=== PATIENT | male | born 1975 | race Caucasian/White ===

== ENCOUNTER 2016-07-21 15:02 | Emergency (ER) | payer BC ==
[~2016-07-21] VITALS: Ht 182.9 cm; Wt 110.9 kg
[~2016-07-21 15:02] MED LIST: RANI-45 PO
[2016-07-21 15:04] VITALS: Ht 182.9 cm; Wt 110.9 kg
--- OUTSIDE RECORDS SUMMARY | 2016-07-21 15:05 | XMS REPORT | Continuity of Care Document ---
Author Author [facility] Organization [facility] Address Unknown Phone Unavailable Allergies Active Description Code Type Severity Reaction Onset Reported/Identified Relationship to Patient Clinical Status Yes No Known Medication Allergies NKMA N/A N/A 06/19/2015 Medications Problems Procedures Results Encounters ACCT No. Visit Date/Time Discharge Status Pt. Type Provider Facility Loc./Unit Complaint [id number] 05/12/2013 11:18:00 05/12/2013 23 :59:59 [facility] Outpatient [id number] 04/21/2013 13:15:00 04/21/2013 23 :59:59 [facility] Outpatient
--- OUTSIDE RECORDS SUMMARY | 2016-07-21 15:05 | XMS REPORT | Continuity of Care Document ---
Author Author Heena HOLLOWAY, Ricardo LILLY Organization Ambulatory Address [address] [place] [address] [place] [address] Phone Care Team Providers Care Bi Application Developer Name Role Phone Ricardo Naik PP Unavailable Payers Payer name Insurance type Covered constitution party ID Authorization(s) Unknown Problems Condition Effective Dates (start - stop) Clinical Status Chest pain, unspecified - *Resolved GERD - *Controlled Solitary pulmonary nodule - *Controlled GERD - *Controlled Upper Respiratory Infection, Acute - *Acute Chest pain, unspecified - *Acute GERD - *Chronic Blood pressure elevation w/o HTN - *Chronic Solitary pulmonary nodule - *Chronic GERD - *Chronic Family History Family Member Diagnosis Age At Onset Status Mother (Unknown) Alive and well (Unknown) Father (Unknown) Alive and well (Unknown) Social History Social History Element Description Quantity Unknown Allergies, Adverse Reactions, Alerts Substance Reaction Severity Status Unknown Medications Medication Instructions Dosage Effective Dates (start - stop) Status Prilosec 40 mg capsule,delayed release take 1 capsule (40MG) by oral route every day before a meal 40 MG - Active Zithromax 250 mg tablet take 2 tablet (500MG) by oral route every day for 1 day then 1 tablet (250 mg) by oral route once daily for 4 days 500 MG 2013 - No Longer Active Reglan 10 mg tablet 1 po qd prn - Active Prilosec 40 mg capsule,delayed release take 1 capsule (40MG) by oral route every day before a meal 40 MG - Active Immunizations Vaccine Date Status Comments flu (split) (3 yrs or older) completed - Completed reason: public agency Results Test Name Date and Time Measure Units Reference Range Abnormal Flag Comments Unknown Vital Signs Date / Time: Height Weight Pulse Rate Blood Pressure Temperature /11:18:00 73.00 in 243.00 lbs 140/80 mm[Hg] 97.5 F Procedures Procedure Date Unknown Encounters Encounter Location Date Patient Visit [facility] Patient Visit [facility] Patient Visit [facility] Advance Directives Directive Effective Date Unknown
--- OUTSIDE RECORDS SUMMARY | 2016-07-21 15:05 | XMS REPORT | Continuity of Care Document ---
Author Author Heena HOLLOWAY, Ricardo LILLY Organization [facility] Address [address] [place] [address] [place] [address] Phone Care Team Providers Care Senior Clerk Name Role Phone Ricardo Naik PP Unavailable Payers Payer name Insurance type Covered alliance party ID Authorization(s) Unknown Problems Condition Effective Dates (start - stop) Clinical Status Chest pain, unspecified - *Acute GERD - *Chronic Blood pressure elevation w/o HTN - *Chronic Solitary pulmonary nodule - *Chronic GERD - *Chronic Chest pain, unspecified - *Resolved GERD - *Controlled Solitary pulmonary nodule - *Controlled GERD - *Controlled Upper Respiratory Infection, Acute - *Acute Family History Family Member Diagnosis Age At Onset Status Mother (Unknown) Alive and well (Unknown) Father (Unknown) Alive and well (Unknown) Social History Social History Element Description Quantity Unknown Allergies, Adverse Reactions, Alerts Substance Reaction Severity Status Unknown Medications Medication Instructions Dosage Effective Dates (start - stop) Status Reglan 10 mg tablet 1 po qd prn - Active Pepcid 20 mg tablet take 1 tablet (20MG) by oral route 2 times every day 20 MG - No Longer Active Prilosec 40 mg capsule,delayed release take 1 capsule (40MG) by oral route every day before a meal 40 MG - Active Prilosec 40 mg capsule,delayed release [...] Height Weight Pulse Rate Blood Pressure Temperature /13:16:00 73.00 in 248.00 lbs 140/90 mm[Hg] 97.8 F Procedures Procedure Date Unknown Encounters Encounter Location Date Patient Visit [facility] Patient Visit [facility] Patient Visit [facility] Advance Directives Directive Effective Date Unknown
--- OUTSIDE RECORDS SUMMARY | 2016-07-21 15:05 | XMS REPORT | Referral Summary ---
Author Author [facility] Organization [facility] Address Unknown Phone Unavailable Care Team Providers Care Commercial Review Appraiser Name Role Phone Deion Naik Primary Care Physician [phone] Encounter [facility] Date(s): 11/05/15 - 11/05/15 [facility], [address] [place], [place] [id number] Discharge Disposition: 01-Home or Self Care Attending Physician: Ricardo Naik MD Admitting Physician: Ricardo Naik MD Vital Signs Most recent to 1 oldest [Reference Range]: Blood Pressure 130/100 mmHg [90-140/60-90 mmHg] (11/05/15 8:59 AM) Problem List Condition Effective Dates Status Health Status Informant GERD Resolved (gastroesophageal reflux disease)(Confirmed) Gout(Confirmed) Active Allergies, Adverse Reactions, Alerts No Known Medication Allergies Medications allopurinol 100 mg oral tablet 100 mg 1 tabs, Oral, Daily, # 90 tabs, 1 Refill(s), Pharmacy: [id number], 1 tabs Oral Daily Start Date: 11/05/15 Status: Ordered cyclobenzaprine 10 mg oral tablet 10 mg 1 tabs, Oral, TID, as needed for spasm, # 40 tabs, 0 Refill(s), Pharmacy: [id number], 1 tabs Oral TID,PRN:as needed for spasm Start Date: 11/05/15 Status: Ordered omeprazole 40 mg oral delayed release capsule 40 mg 1 caps, Oral, Daily, # 90 caps, 1 Refill(s), Pharmacy: [id number], 1 caps Oral Daily Start Date: 11/05/15 Status: Ordered Results No data available for this section Immunizations Vaccine Date Refusal Reason influenza virus vaccine, live 04/29/12 Procedures No data available for this section Social History Social History Type Response Smoking Status Never smoker Assessment and Plan Extracted from: Title: [facility] Patient Education Author: Ricardo Naik MD Date: Family Medicine Esophagitis Esophagitis is inflammation of the esophagus. It can involve swelling, soreness , and pain in the esophagus. This condition can make it difficult and painful to swallow. CAUSES Most causes of esophagitis are not serious. Many different factors can cause esophagitis, including: Gastroesophageal reflux disease (GERD). This is when acid from your stomach flows up into the esophagus. Recurrent vomiting. An allergic-type reaction. Certain medicines, especially those that come in large pills. Ingestion of harmful chemicals, such as household cleaning products. Heavy alcohol use. An infection of the esophagus. Radiation treatment for cancer. Certain diseases such as sarcoidosis, Crohn's disease, and scleroderma. These diseases may cause recurrent esophagitis. SYMPTOMS Trouble swallowing. Painful swallowing. Chest pain. Difficulty breathing. Nausea. Vomiting. Abdominal pain. DIAGNOSIS Your caregiver will take your history and do a physical exam. Depending upon what your caregiver finds, certain tests may also be done, including: Barium X-ray. You will drink a solution that coats the esophagus, and X- rays will be taken. Endoscopy. A lighted tube is put down the esophagus so your caregiver can examine the area. Allergy tests. These can sometimes be arranged through follow-up visits. TREATMENT Treatment will depend on the cause of your esophagitis. In some cases, steroids or other medicines may be given to help relieve your symptoms or to treat the underlying cause of your condition. Medicines that may be recommended include: Viscous lidocaine, to soothe the esophagus. Antacids. Acid reducers. Proton pump inhibitors. Antiviral medicines for certain viral infections of the esophagus. Antifungal medicines for certain fungal infections of the esophagus. Antibiotic medicines, depending on the cause of the esophagitis. HOME CARE INSTRUCTIONS Avoid foods and drinks that seem to make your symptoms worse. Eat small, frequent meals instead of large meals. Avoid eating for the 3 hours prior to your bedtime. If you have trouble taking pills, use a pill splitter to decrease the size and likelihood of the pill getting stuck or injuring the esophagus on the way down. Drinking water after taking a pill also helps. Stop smoking if you smoke. Maintain a healthy weight. Wear loose-fitting clothing. Do not wear anything tight around your waist that causes pressure on your stomach. Raise the head of your bed 6 to 8 inches with wood blocks to help you sleep. Extra pillows will not help. Only take [id number] or prescription medicines as directed by your caregiver. SEEK IMMEDIATE MEDICAL CARE IF: You have severe chest pain that radiates into your arm, neck, or jaw. You feel sweaty, dizzy, or lightheaded. You have shortness of breath. You vomit blood. You have difficulty or pain with swallowing. You have bloody or black, tarry stools. You have a fever. You have a burning sensation in the chest more than 3 times a week for more than 2 weeks. You cannot swallow, drink, or eat. You drool because you cannot swallow your saliva. MAKE SURE YOU: Understand these instructions. Will watch your condition. Will get help right away if you are not doing well or get worse. This information is not intended to replace advice given to you by your health care provider. Make sure you discuss any questions you have with your health care provider. Document Released: 05/14/2005 Document Revised: 04/27/2015 Document Reviewed: [facility] Patient Information 2016 [employer]. No follow up information was provided. Extracted from: Title: Office Visit Note Author: Ricardo Naik MD Date: 11/05/15 Assessment/Plan Acute neck pain We discussed several options for treatment for this condition. The patient declined any changes or other treatments at this time. The patient was offered and/or directed to a specialist for this issue. The patient refused or at least deferred any referral at this time. Xray and consider MRI when interested.Flexeril 10mgpo tid prn, may cause sedation. A work/school note was offered and deferred by the patient. Elevated BP The patient had an elevated blood pressure reading and is to monitor their bp and call with a report if consistently > 140/90. GERD (gastroesophageal reflux disease) This issue was reviewed, appears stable , and current therapy continued except as mentioned. Appropriate lab was reviewed from the most recent appropriate entry and lab was ordered if needed in the cpoe/nursing orders, and follow up recommended generally in 90 days and no later then six months. Refills given. Gout This issue was reviewed, appears stable, and current therapy continued except as mentioned. Appropriate lab was reviewed from the most recent appropriate entry and lab was ordered if needed in the cpoe/nursing orders, and follow up recommended generally in 90 days and no later then six months. Lab pending. Ordered: Basic Metabolic Panel Urinalysis with Culture if Indicated Orders: allopurinol, 100 mg 1 tabs, Oral, Daily, # 90 tabs, 1 Refill(s), Pharmacy: [id number], 1 tabs Oral Daily cyclobenzaprine, 10 mg 1 tabs, Oral, TID, as needed for spasm, # 40 tabs, 0 Refill(s), Pharmacy: [id number], 1 tabs Oral TID,PRN:as needed for spasm omeprazole, 40 mg 1 caps, Oral, Daily, # 90 caps, 1 Refill(s), Pharmacy: [id number], 1 caps Oral Daily
--- OUTSIDE RECORDS SUMMARY | 2016-07-21 15:05 | XMS REPORT | Referral Summary ---
Author Author [facility], Family Medicine Organization [facility] Address Unknown Phone Unavailable Care Team Providers Care Lockstitch Sleeve Maker Name Role Phone Yamiletdestinee Deion Primary Care Physician [phone] Encounter Date(s): 06/19/15 - 06/19/15 [facility], [address] [place], [place] [address] Discharge Diagnosis: Pain of right great toe Discharge Diagnosis: Acute gout of right foot Discharge Disposition: 01-Home or Self Care Attending Physician: Simi Greenberg PA-C Admitting Physician: Simi Greenberg PA-C Vital Signs Most recent to 1 oldest [Reference Range]: Temperature Tympanic 36.5 degC [36.6-38.1 degC] *LOW* (06/19/15 3:15 PM) Peripheral Pulse 74 bpm Rate [60-100 bpm] (06/19/15 3:15 PM) Respiratory Rate 18 br/min [14-20 br/min] (06/19/15 3:15 PM) Blood Pressure 130/90 mmHg [90-140/60-90 mmHg] (06/19/15 3:15 PM) Problem List Condition Effective Dates Status Health Status Informant GERD Resolved (gastroesophageal reflux disease)(Confirmed) Allergies, Adverse Reactions, Alerts No Known Medication Allergies Medications allopurinol 100 mg oral tablet 100 mg 1 tabs, Oral, Daily, # 30 tabs, 0 Refill(s), Pharmacy: [id number], 1 tabs Oral Daily Start Date: 06/19/15 Status: Ordered colchicine 0.6 mg oral tablet See Instructions, Take 2 tabs PO x 1, then 1 tab PO 1 hr later x 1, # 3 Each, 0 Refill(s), Pharmacy: [id number], Take 2 tabs PO x 1, then 1 tab PO 1 hr later x 1 Start Date: 06/19/15 Stop Date: 06/20/15 Status: Ordered omeprazole 40 mg oral delayed release capsule 1 caps, Oral, Daily, # 30 caps, 0 Refill(s) Start Date: 09/28/13 Status: Ordered Results Chemistry Most recent to 1 oldest [Reference Range]: Uric Acid [3.5-7.2 7.7 mg/dL mg/dL] *HI* (06/19/15 3:38 PM) Immunizations Vaccine Date Refusal Reason influenza virus vaccine, live 04/29/12 Procedures No data available for this section Social History Social History Type Response Smoking Status Never smoker Assessment and Plan Extracted from: Title: Ambulatory Patient Education Author: Simi Greenberg PA-C Date : 06/19/15 Family Medicine Gout Gout is an inflammatory arthritis caused by a buildup of uric acid crystals in the joints. Uric acid is a chemical that is normally present in the blood. When the level of uric acid in the blood is too high it can form crystals that deposit in your joints and tissues. This causes joint redness, soreness, and swelling (inflammation). Repeat attacks are common. Over time, uric acid crystals can form into masses (tophi) near a joint, destroying bone and causing disfigurement. Gout is treatable and often preventable. CAUSES The disease begins with elevated levels of uric acid in the blood. Uric acid is produced by your body when it breaks down a naturally found substance called purines. Certain foods you eat, such as meats and fish, contain high amounts of purines. Causes of an elevated uric acid level include: Being passed down from parent to child (heredity). Diseases that cause increased uric acid production (such as obesity, psoriasis, and certain cancers). Excessive alcohol use. Diet, especially diets rich in meat and seafood. Medicines, including certain cancer-fighting medicines (chemotherapy), water pills (diuretics), and aspirin. Chronic kidney disease. The kidneys are no longer able to remove uric acid well. Problems with metabolism. Conditions strongly associated with gout include: Obesity. High blood pressure. High cholesterol. Diabetes. Not everyone with elevated uric acid levels gets gout. It is not understood why some people get gout and others do not. Surgery, joint injury, and eating too much of certain foods are some of the factors that can lead to gout attacks. SYMPTOMS An attack of gout comes on quickly. It causes intense pain with redness, swelling, and warmth in a joint. Fever can occur. Often, only one joint is involved. Certain joints are more commonly involved: Base of the big toe. Knee. Ankle. Wrist. Finger. Without treatment, an attack usually goes away in a few days to weeks. Between attacks, you usually will not have symptoms, which is different from many other forms of arthritis. DIAGNOSIS Your caregiver will suspect gout based on your symptoms and exam. In some cases , tests may be recommended. The tests may include: Blood tests. Urine tests. X-rays. Joint fluid exam. This exam requires a needle to remove fluid from the joint (arthrocentesis). Using a microscope, gout is confirmed when uric acid crystals are seen in the joint fluid. TREATMENT There are two phases to gout treatment: treating the sudden onset (acute) attack and preventing attacks (prophylaxis). Treatment of an Acute Attack. Medicines are used. These include anti-inflammatory medicines or steroid medicines. An injection of steroid medicine into the affected joint is sometimes necessary. The painful joint is rested. Movement can worsen the arthritis. You may use warm or cold treatments on painful joints, depending which works best for you. Treatment to Prevent Attacks. If you suffer from frequent gout attacks, your caregiver may advise preventive medicine. These medicines are started after the acute attack subsides. These medicines either help your kidneys eliminate uric acid from your body or decrease your uric acid production. You may need to stay on these medicines for a very long time. The early phase of treatment with preventive medicine can be associated with an increase in acute gout attacks. For this reason, during the first few months of treatment, your caregiver may also advise you to take medicines usually used for acute gout treatment. Be sure you understand your caregiver's directions. Your caregiver may make several adjustments to your medicine dose before these medicines are effective. Discuss dietary treatment with your caregiver or dietitian. Alcohol and drinks high in sugar and fructose and foods such as meat, poultry, and seafood can increase uric acid levels. Your caregiver or dietitian can advise you on drinks and foods that should be limited. HOME CARE INSTRUCTIONS Do not take aspirin to relieve pain. This raises uric acid levels. Only take [id number]-oor-ibilkcx or prescription medicines for pain, discomfort , or fever as directed by your caregiver. Rest the joint as much as possible. When in bed, keep sheets and blankets off painful areas. Keep the affected joint raised (elevated). Apply warm or cold treatments to painful joints. Use of warm or cold treatments depends on which works best for you. Use crutches if the painful joint is in your leg. Drink enough fluids to keep your urine clear or pale yellow. This helps your body get rid of uric acid. Limit alcohol, sugary drinks, and fructose drinks. Follow your dietary instructions. Pay careful attention to the amount of protein you eat. Your daily diet should emphasize fruits, vegetables, whole grains, and fat-free or low-fat milk products. Discuss the use of coffee, vitamin C, and cherries with your caregiver or dietitian. These may be helpful in lowering uric acid levels. Maintain a healthy body weight. SEEK MEDICAL CARE IF: You develop diarrhea, vomiting, or any side effects from medicines. You do not feel better in 24 hours, or you are getting worse. SEEK IMMEDIATE MEDICAL CARE IF: Your joint becomes suddenly more tender, and you have chills or a fever. MAKE SURE YOU: Understand these instructions. Will watch your condition. Will get help right away if you are not doing well or get worse. This information is not intended to replace advice given to you by your health care provider. Make sure you discuss any questions you have with your health care provider. Document Released: 04/03/2001 Document Revised: 08/21/2014 Document Reviewed: [facility] Patient Information 2015 [employer]. Low-Purine Diet Purines are compounds that affect the level of uric acid in your body. A low- purine diet is a diet that is low in purines. Eating a low-purine diet can prevent the level of uric acid in your body from getting too high and causing gout or kidney stones or both. WHAT DO I NEED TO KNOW ABOUT THIS DIET? Choose low-purine foods. Examples of low-purine foods are listed in the next section. Drink plenty of fluids, especially water. Fluids can help remove uric acid from your body. Try to drink 816 cups (1.93.8 L) a day. Limit foods high in fat, especially saturated fat, as fat makes it harder for the body to get rid of uric acid. Foods high in saturated fat include pizza, cheese, ice cream, whole milk, fried foods, and gravies. Choose foods that are lower in fat and lean sources of protein. Use olive oil when cooking as it contains healthy fats that are not high in saturated fat. Limit alcohol. Alcohol interferes with the elimination of uric acid from your body. If you are having a gout attack, avoid all alcohol. Keep in mind that different people's bodies react differently to different foods. You will probably learn over time which foods do or do not affect you. If you discover that a food tends to cause your gout to flare up, avoid eating that food. You can more freely enjoy foods that do not cause problems. If you have any questions about a food item, talk to your dietitian or health care provider. WHICH FOODS ARE LOW, MODERATE, AND HIGH IN PURINES? The following is a list of foods that are low, moderate, and high in purines. You can eat any amount of the foods that are low in purines. You may be able to have small amounts of foods that are moderate in purines. Ask your health care provider how much of a food moderate in purines you can have. Avoid foods high in purines. Grains Foods low in purines: Enriched white bread, pasta, rice, cake, cornbread , popcorn. Foods moderate in purines: Whole-grain breads and cereals, wheat germ, bran, oatmeal. Uncooked oatmeal. Dry wheat bran or wheat germ. Foods high in purines: Pancakes, Japanese toast, biscuits, muffins. Vegetables Foods low in purines: All vegetables, except those that are moderate in purines. Foods moderate in purines: Asparagus, cauliflower, spinach, mushrooms, green peas. Fruits All fruits are low in purines. Meats and other Protein Foods Foods low in purines: Eggs, nuts, peanut butter. Foods moderate in purines: 8090% lean beef, puga, veal, pork, poultry , fish, eggs, peanut butter, nuts. Crab, lobster, oysters, and shrimp. Cooked dried beans, peas, and lentils. Foods high in purines: Anchovies, sardines, gilmore, mussels, tuna, codfish, scallops, trout, and juan miguel. Wright. Organ meats (such as liver or kidney). Tripe. Game meat. Goose. Sweetbreads. Dairy All dairy foods are low in purines. Low-fat and fat-free dairy products are best because they are low in saturated fat. Beverages Drinks low in purines: Water, carbonated beverages, tea, coffee, cocoa. Drinks moderate in purines: Soft drinks and other drinks sweetened with high-fructose corn syrup. Juices. To find whether a food or drink is sweetened with high-fructose corn syrup, look at the ingredients list. Drinks high in purines: Alcoholic beverages (such as beer). Condiments Foods low in purines: Salt, herbs, olives, pickles, relishes, vinegar. Foods moderate in purines: Butter, margarine, oils, mayonnaise. Fats and Oils Foods low in purines: All types, except gravies and sauces made with meat. Foods high in purines: Gravies and sauces made with meat. Other Foods Foods low in purines: Sugars, sweets, gelatin. Cake. Soups made without meat. Foods moderate in purines: Meat-based or fish-based soups, broths, or bouillons. Foods and drinks sweetened with high-fructose corn syrup. Foods high in purines: High-fat desserts (such as ice cream, cookies, cakes, pies, doughnuts, and chocolate). Contact your dietitian for more information on foods that are not listed here. This information is not intended to replace advice given to you by your health care provider. Make sure you discuss any questions you have with your health care provider. Document Released: 08/01/2011 Document Revised: 04/11/2014 Document Reviewed: [employer] Patient Information 2015 [facility]. No follow up information was provided. Extracted from: Title: Office Visit Note- Gout Author: Simi Greenberg PA-C Date: 06/18 Assessment/Plan Acute gout of right foot I d/w the pt that this appears to be very classic gout. He is a little skeptical. He would like an x-ray today to make sure it doesn't have to do with his previous injury. I recommended that we check his uric acid level today. I would like to start him on Allopurinol 100mg daily and also Colcrys to help with the pain. I spent about 15 minutes discussing with pt about gout. I advised that he cut back or quit drinking beer, as well as cut back on red meats. Increase dairy and push fluids. We discussed the need to continue on Allopurinol to prevent gout attacks. He can continue to ice and elevate the foot for now. Will check uric acid level today as well. If the level is normal, the pt could DC Allopurinol if he would like. Ordered: Office Visit Level 4 Est 31177 Pain of right great toe, Pain of right great toe See plan above. Ordered: Office Visit Level 4 Est 83742 Uric Acid XR Foot Complete Right Orders: allopurinol, 100 mg 1 tabs, Oral, Daily, # 30 tabs, 0 Refill(s), Pharmacy: [facility], 1 tabs Oral Daily colchicine, See Instructions, Take 2 tabs PO x 1, then 1 tab PO 1 hr later x 1 , # 3 Each, 0 Refill(s), Pharmacy: [facility], Take 2 tabs PO x 1, then 1 tab PO 1 hr later x 1
--- OUTSIDE RECORDS SUMMARY | 2016-07-21 15:05 | XMS REPORT | Referral Summary ---
Author Author [facility], [facility] Organization [facility] Address Unknown Phone Unavailable Care Team Providers Care Sap Basis Consultant Name Role Phone Deion Naik Primary Care Physician [phone] Encounter Date(s): 05/19/16 - 05/19/16 [facility] [address] [place] [id number] Discharge Diagnosis: Left shoulder pain Discharge Diagnosis: Gout Discharge Diagnosis: GERD (gastroesophageal reflux disease) Discharge Disposition: -Home or Self Care Attending Physician: Ricardo Naik MD Admitting Physician: Ricardo Naik MD Vital Signs Most recent to 1 oldest [Reference Range]: Blood Pressure 120/80 mmHg [90-140/60-90 mmHg] (05/19/16 10:41 AM) Problem List Condition Effective Dates Status Health Status Informant GERD Resolved (gastroesophageal reflux disease)(Confirmed) Gout(Confirmed) Active Obesity(Confirmed) Active patient Allergies, Adverse Reactions, Alerts No Known Medication Allergies Medications allopurinol 100 mg oral tablet 100 mg 1 tabs, Oral, Daily, # 90 tabs, 1 Refill(s), Pharmacy: [facility], 1 tabs Oral Daily Start Date: 05/19/16 Status: Ordered cyclobenzaprine 10 mg oral tablet 10 mg 1 tabs, Oral, TID, as needed for spasm, # 90 tabs, 0 Refill(s), Pharmacy: [id number], 1 tabs Oral TID,PRN:as needed for spasm Start Date: 05/19/16 Status: Ordered omeprazole 40 mg oral delayed release capsule 40 mg 1 caps, Oral, Daily, # 90 caps, 1 Refill(s), Pharmacy: [id number], 1 caps Oral Daily Start Date: 05/19/16 Status: Ordered Results No data available for this section Immunizations Given and Recorded Vaccine Date Status Refusal Reason influenza virus vaccine, live 04/29/12 Given Procedures No data available for this section Social History Social History Type Response Smoking Status Never smoker Assessment and Plan Extracted from: Title: Ambulatory Patient Education Author: Ricardo Naik MD Date: Nutrition Esophagitis Esophagitis is inflammation of the esophagus. [...] Extra pillows will not help. Only take firs-npc-scrunoa or prescription medicines as directed by your [...] Released: 05/14/2005 Document Revised: 04/27/2015 Document Reviewed: [employer] Patient Education 2016 [employer] No follow up information was provided. Extracted from: Title: Office Visit Note Author: Ricardo Naik MD Date: 05/19/16 Assessment/Plan GERD (gastroesophageal reflux disease) This issue was reviewed, appears stable, and current therapy continued except as mentioned. Appropriate lab was reviewed from the most recent appropriate entry and lab was ordered if needed in the cpoe/nursing orders, and follow up recommended generally in 90 days and no later then six months. Refill meds. Gout The patient's issue is nearly or completely resolved. There is no further issues or testing desired by them at this time. This issue was reviewed, appears stable, and current therapy continued except as mentioned. Appropriate lab was reviewed from the most recent appropriate entry and lab was ordered if needed in the cpoe/nursing orders, and follow up recommended generally in 90 days and no later then six months. Refill meds. IMPRESSION: 1. There is mild soft tissue edema along the medial aspect of the first metatarsophalangeal joint. The joint itself is fairly well-maintained and there is no sign of bony destruction. If further imaging of the first metatarsophalangeal joint is desired, then MRI would be recommended. [1] Left shoulder pain This issue was reviewed, appears stable, and current therapy continued except as mentioned. Appropriate lab was reviewed from the most recent appropriate entry and lab was ordered if needed in the cpoe/nursing orders, and follow up recommended generally in 90 days and no later then six months. Refillflexeril athis request. A work/school note was offered and deferred by the patient. Impression: Negative left shoulder x-rays [2] IMPRESSION: No acute disease is seen in the chest , with stable findings. [3]
[2016-07-21] MEDS ORDERED: ASPIRIN 81 MG CHEWABLE TABLET PO ONE (15:15)
[2016-07-21] MEDS ORDERED: NITROGLYCERIN 0.4 MG SUBLINGUAL TABLET SL PRN (15:15)
--- NOTE | 2016-07-21 15:20 | ERPDOC ---
Departure Disposition Decision Date: Jul 21, 2016 Disposition Decision Time: 16:01 Disposition: 01 DISCHARGED HOME, SELF-CARE Impression Impression Impression: Primary Impression: Atypical chest pain Severity: Moderate Condition: Stable Seen By: Mid-level only Referrals: ML BANDA MD (Family) Patient Instructions: Gastroesophageal Reflux Disease (ED) Problems/Meds/Labs Reviewed?: Yes Medications reviewed and manag: Yes Additional Instructions: I do want you to start the Nexium as prescribed. This should help in the next few days. Follow up with Dr Banda for further evaluation of the pain if it persists. Follow up care ordered?: Yes Mental Status: Alert Scripts Esomeprazole Mag Trihydrate (Nexium) 20 Mg Capsule 1 TAB PO DAILY, #30 TAB 0 Refills Prov: EDNA PHILLIPS [employer]ER AND SEWER 07/21/16 HPI - Chest Pain General Chief Complaint: Chest Pain Stated Complaint: CP Time Seen by Provider: 15:03 Source: patient Exam Limitations: no limitations HPI - Chest Pain Initial Comments He had onset of chest pain today after eating lunch. He had a frozen microwavable meal for lunch. Pain does come and go and he did not have any SOA, nausea, or lightheadedness. He has had this happen in the past and was diagnosed with GERD. He did go to his PCP office today and was sent to ER for evaluation. Has not really had much of a cough or a fever. Has had some chills. Denies any pain at all currently but did have some in the lobby when he checked in. Has not take anything for pain today. Occurred At: home Onset/Timing: Rapid Duration: 1-3 hrs (around 1230 today after lunch) Activities at Onset/Context: none Location: substernal Quality: sharp Associated Symptoms: DENIES: abdominal pain, back pain, diaphoresis, dizziness , edema, fast HR, fatigue, fever/chills, headache, heartburn, irregular HR, nausea/vomiting, rash, shortness of breath, slow HR, swelling/lump in chest, syncope, weakness Chest Pain Radiation: no radiation Nitro Today/Relief: no nitro taken today Aspirin Treatment Today: unknown Hx of Similar Symptoms: Yes Allergies: Coded Allergies: No Known Allergies (Unverified , 04/16/13) Past History Past Medical History GI: GERD Surgical History Denies Surgeries Family History Family PMH: FOUND: diabetes Social History Smoking Status: Never smoker Substance Use Type: does not use Alcohol Intake: none Review of Systems Constitutional Constitutional: DENIES: chills, dizziness, fatigue, fever, weakness Cardiovascular Cardiac: chest pain, DENIES: dyspnea on exertion, orthopnea Rhythm/Rate: DENIES: irregular beat, palpitations Vascular: DENIES: pedal edema, unilateral swelling Pulmonary Respiratory: DENIES: cough, dyspnea, sputum, tachypnea GI Upper Abdomen: DENIES: nausea, pain, vomiting Lower Abdomen: DENIES: constipation, diarrhea, pain Integumentary Skin: DENIES: rash Neurological General: DENIES: headache, numbness, tingling, weakness Physical Exam General General Nourishment: well nourished, well developed, appears stated age, no acute distress, adult General Body Habitus: well groomed Vitals and Pain First Documented Vital Signs Date Time Temp Pulse Resp B/P Pulse Ox O2 Delivery O2 Flow Rate FiO2 07/21/16 15:04 98.5 77 16 138/83 98 Room Air Weight: Kilograms: Height (feet): Height (inches): Triage Pain Scale: RN VS reviewed by Provider: Yes Normal Exams: Neck: Full range of motion, without adenopathy, JVD, bruits or thyromegaly Chest/Resp: Clear all doshi, with good airflow, and symmetry bilaterally CV: Regular rate and rhythm, without murmur or gallop, Pulses 2+ all extremities, capillary refill, <2 seconds all ext., no pedal edema noted Abdomen: Bowel sounds positive, soft, non-tender, non-distended, no hepatosplenomegaly, masses or bruits noted Lymphatic: No lymphadenopathy, or lymphedema noted Integumentary: No rashes, hives, or bruising noted Neurologic: Patient is alert, and oriented Psychiatric: Patient exhibits, appropriate attention, emotion and affect Differential Diagnoses Considering: Acute SD, Anxiety/Panic, Angina, Costochondritis, Esophageal Spasm , GERD, Pneumonia, Muscle Spasm Progress Results/Orders Orders Procedure Category Date Status Time EKG EKG 07/21/16 Logged Cbc W/Auto LAB 07/21/16 Complete Diff-Reflex Manual 15:12 Troponin I W LAB 07/21/16 Complete Hemolysis Index 15:12 Chest 1 View RAD 07/21/16 Resulted 15:12 Iv Lock (Ed Only) EDM 07/21/16 Transmitted 15:12 Aspirin (Asa) PHA 07/21/16 Complete 15:15 Nitroglycerin PHA 07/21/16 In Process (Nitrostat) 15:15 Cmp - Comprehensive LAB 07/21/16 Complete Metabolic Lab Results Laboratory Tests Test 07/21/16 15:19 White Blood Count 7.6T/MM3 Red Blood Count 5.20M/MM3 Hemoglobin 16.0GM/DL Hematocrit 45.6% Mean Corpuscular Volume 87.7UM3 Mean Corpuscular Hemoglobin 30.8UUG Mean Corpuscular Hemoglobin Concent 35.1GM/DL RDW Standard Deviation 40.0FL Platelet Count 185T/MM3 Mean Platelet Volume 11.4UM3 Immature Granulocyte % (Auto) 0.4% Neutrophils (%) (Auto) 71.3% Lymphocytes (%) (Auto) 19.7% Monocytes (%) (Auto) 5.9% Eosinophils (%) (Auto) 2.2% Basophils (%) (Auto) 0.5% Absolute Immature Granulocyte (auto 0.03T/MM3 Absolute Neutrophils (auto) 5.4T/MM3 Absolute Lymphocytes (auto) 1.5T/MM3 Absolute Monocytes (auto) 0.5T/MM3 Absolute Eosinophils (auto) 0.2T/MM3 Absolute Basophils (auto) 0.0T/MM3 Turbidity < 20 Sodium Level 147MEQ/L Potassium Level 4.2MEQ/L Chloride Level 109MEQ/L Carbon Dioxide Level 25MEQ/L Anion Gap 13MEQ/L Blood Urea Nitrogen 10.0MG/DL Creatinine 0.8MG/DL Glomerular Filtration Rate Calc 108 BUN/Creatinine Ratio 13RATIO Glucose Level 126MG/DL Calculated Osmolality 283MOSM/KG Calcium Level 9.9MG/DL Total Bilirubin 0.80MG/DL Icterus Index < 2 Aspartate Amino Transf (AST/SGOT) 32U/L Alanine Aminotransferase (ALT/SGPT) 74U/L Alkaline Phosphatase 85U/L Troponin I < 0.012ng/ml Total Protein 7.5G/DL Albumin 4.7G/DL Globulin 2.8G/DL Albumin/Globulin Ratio 1.7RATIO Chemistry Specimen Hemolysis < 15 Medications Current ED Medications Aspirin (ASA) 324 mg O ONCE PO Last administered on 07/21/16t 15:20; Start 07/21 at 15:15; Stop 07/21/16 at 15:17; Status DC Nitroglycerin (Nitrostat) 0.4 mg Q5MIN PRN SL CHEST PAIN; Start 07/21/16 at 15: 15 Progress Progress CBC, BMP, and troponin today is normal. Chest xray today is normal. He is not having any pain at all currently but has had some twinges of pain in room while awaiting lab results. He is taking 75mg Zantac BID currently and has taken Omeprazole in the past but felt like it made him feel odd. Will have him follow up with his PCP if not improving at all. Xray Xray : Reason for Exam: Chest pain Xray: CXR Portable Interpretation: Normal EDNA PHILLIPS APRN Jul 21, 2016 15:20
[2016-07-21 15:24] LABS: BASOPHILS % (AUTO) 0.5 % (0-2); EOSINOPHILS # (AUTO) 0.2 T/MM3 (0-0.5); EOSINOPHILS % (AUTO) 2.2 % (0-4); HCT - HEMATOCRIT 45.6 % (41-53); IMMATURE GRANULOCYTE # (AUTO) 0.03 T/MM3 (0.00-0.03); IMMATURE GRANULOCYTE % (AUTO) 0.4 % (0.0-0.5); LYMPHOCYTES # (AUTO) 1.5 T/MM3 (1-4.8); LYMPHOCYTES % (AUTO) 19.7 % (23-45); MEAN CORPUSCULAR HGB 30.8 UUG (26-34); MEAN CORPUSCULAR HGB CONC(MCHC 35.1 GM/DL (31-37); MEAN CORPUSCULAR VOLUME 87.7 UM3 (80-100); MEAN PLATELET VOLUME 11.4 UM3 (9.4-12.4); MONOCYTES # (AUTO) 0.5 T/MM3 (0-0.8); MONOCYTES % (AUTO) 5.9 % (0-9.0); NEUTROPHILS #(AUTO)-ABSOLUTE 5.4 T/MM3 (1.8-7.7); NEUTROPHILS % (AUTO) 71.3 % (33-66); WBC - WHITE BLOOD COUNT 7.6 T/MM3 (4.5-11.0)
--- NOTE | 2016-07-21 15:30 | NUR ---
XRAY PORTABLE XRAY AT BEDSIDE.
[2016-07-21] MEDS ORDERED: RANI-470 PO (15:31)
[2016-07-21] MEDS ORDERED: ALLO100T PO (15:31)
[2016-07-21 15:36] LABS: ALBUMIN 4.7 G/DL (3.5-5.0); ALBUMIN/GLOBULIN RATIO 1.7 RATIO (1.1-2.2); ALKALINE PHOSPHATASE 85 U/L (38-126); ALT (SGPT) 74 U/L (21-72); ANION GAP 13 MEQ/L (5-15); AST (SGOT) 32 U/L (17-59); BUN/CREATININE RATIO 13 RATIO (6-26); CALCIUM 9.9 MG/DL (8.4-10.2); CHLORIDE 109 MEQ/L (98-107); CO2 - CARBON DIOXIDE 25 MEQ/L (22-30); CREATININE 0.8 MG/DL (0.8-1.5); GLOMERULAR FILTRATION RATE 108; GLUCOSE 126 MG/DL (75-110); POTASSIUM 4.2 MEQ/L (3.6-5); SODIUM 147 MEQ/L (134-144); TOTAL PROTEIN 7.5 G/DL (6.3-8.2)
--- OUTSIDE RECORDS SUMMARY | 2016-07-21 15:43 | XMS REPORT | Continuity of Care Document ---
Author Author [facility] Organization [facility] Address Unknown Phone Unavailable Allergies Active Description Code Type Severity Reaction Onset Reported/Identified Relationship to Patient Clinical Status Yes No Known Medication Allergies NKMA N/A N/A 06/19/2015 Medications Problems Procedures Results Encounters ACCT No. Visit Date/Time Discharge Status Pt. Type Provider Facility Loc./Unit Complaint [id number] 05/12/2013 11:18:00 05/12/2013 23 :59:59 [facility] Outpatient [id number] 04/21/2013 13:15:00 04/21/2013 23 :59:59 [facility]
--- NOTE | 2016-07-21 15:48 | DI ---
Indication: ITS.REASON: Chest pain starting today PROCEDURE: CHEST 1 VIEW: Encounter: Initial Comparison: September 23, 2013 FINDINGS: The lungs are clear. There is no abnormal airspace opacity, pleural effusion or pneumothorax identified. The heart size, pulmonary vasculature and mediastinum are within normal limits. No significant skeletal abnormality is seen. IMPRESSION: No acute cardiopulmonary abnormality. .
--- NOTE | 2016-07-21 15:54 | NUR ---
PROVIDER Alexandro PHILLIPS APRN AT BEDSIDE TO SPEAK WITH PT.
[2016-07-21] MEDS ORDERED: ESOM20CA PO (16:02)
[2016-07-21 16:12] VITALS: BP 122/80; PULSE 65; RESP 16; TEMP 98.5; O2SAT 97
--- NOTE | 2016-07-21 16:12 | NUR ---
DISCHARGE WRITTEN INSTRUCTIONS WITH NEXIUM RX REVIEWED AND SENT WITH PT. PT VERBALIZES UNDERSTANDING OF DI AND MEDICATION, DENIES QUESTIONS. CONTINUES TO DENY CHEST DISCOMFORT ON DISMISSAL. PT AMBULATES OUT OF ER WITH STEADY GAIT ACCOMP BY FAMILY AT THIS TIME.
== END 2016-07-21 16:12 | disposition home or self-care (01) ==
LOC: ED 15:02
DX: R07.89 Other chest pain (principal)
CPT/HCPCS: 36000; 80053; 84484; 85025; 93005